=== PATIENT | female | born 1955 | race Caucasian/White ===

== ENCOUNTER 2022-05-30 20:15 | Emergency (ER) | payer MEDICARE, OTHER, SELFPAY ==
[2022-05-30] VITALS (9 sets, daily range): BP systolic 124–168; BP diastolic 57–78; PULSE 55–75; RESP 14–26; O2SAT 97–100; BMI 26.4
--- NOTE | 2022-05-30 20:36 | DI.RAD.S_ITS ---
PROCEDURE: XR CHEST 1V INDICATIONS: chest pain TECHNIQUE: One view of the chest was acquired. COMPARISON: None. FINDINGS: Surgical changes and devices: None. Lungs and pleura: Lungs are clear. No pleural effusions or pneumothorax. Mediastinum: Mediastinal contours appear normal. Heart size is normal. Bones and chest wall: No suspicious bony lesions. Overlying soft tissues appear unremarkable. IMPRESSION: No acute cardiopulmonary disease. Dictated by: Smiley Choudhury M.D. on 05/30/2022 at 21:27 Approved by: Smiley Choudhury M.D. on 05/30/2022 at 21:27
[2022-05-30 20:45] LABS: INR 0.9 (0.9-1.3); Prothrombin Time 10.6 SECONDS (10.1-12.7)
[2022-05-30 20:46] LABS: HEMOLYSIS < 15 (0-50)
[2022-05-30 20:47] LABS: Add Manual Diff / Slide Review NO; Basophils Absolute Auto 100 /uL (0-100); Basophils Percent Auto 0.8 % (0-2); Eosinophils Absolute Auto 300 /uL (0-450); Eosinophils Percent Auto 3.2 % (2-4); Hemoglobin 12.3 g/dL (12.0-16.0); Lymphocytes Absolute Auto 3200 /uL (1100-4500); Lymphocytes Percent Auto 39.7 % (25-40); Mean Corpuscular HGB Conc 33.3 % (30-36); Mean Corpuscular Hemoglobin 28.7 PG (26-34); Mean Corpuscular Volume 86.3 fL (80-100); Monocytes Absolute Auto 700 /uL (0-900); Monocytes Percent Auto 9.4 % (3-14); Neutrophils Absolute Auto 3800 /uL (1500-7000); Neutrophils Percent Auto 46.9 % (50-75); PTT Partial Thromboplastin Tim 36 SECONDS (26-36); Platelet Count 315 X10^3/uL (150-400); Red Blood Cell Count 4.29 X10^6/uL (4.0-5.2); Red Cell Distribution Width 13.9 % (11.6-14.8)
[2022-05-30 20:51] LABS: Alanine Aminotransferase 46 IU/L (<35); Albumin 4.5 g/dL (3.5-5.0); Albumin Globulin Ratio 1.4 (1.0-2.8); Alkaline Phosphatase 101 U/L (38-126); Aspartate Aminotransferase 40 IU/L (14-36); Bilirubin Total 0.4 mg/dL (0.2-1.3); Blood Urea Nitrogen 19 mg/dL (7-17); Calcium 9.8 mg/dL (8.4-10.2); Carbon Dioxide 27 mmol/L (22-32); Chloride 99 mmol/L (98-107); Creatine Kinase 75 U/L (30-135); Estimated Glomerular Filt Rate > 60 mL/min (>60); Globulin 3.2 g/dL (1.7-4.1); Glucose 99 mg/dL (80-110); Lipase 160 U/L (23-300); Magnesium 2.2 mg/dL (1.6-2.3); Potassium 3.5 mmol/L (3.4-5.1); Sodium 136 mmol/L (137-145); Total Protein 7.7 g/dL (6.3-8.2)
[2022-05-30] MEDS: ASPIRIN 81 MG CHEW TAB 324 MG PO (20:57)
[2022-05-30 21:04] LABS: Troponin I < 0.012 ng/mL (0.01-0.034)
[2022-05-30 21:33] LABS: NT-proBNP (BNP-Adult 18+) 110 pg/mL (<125)
--- NOTE | 2022-05-30 22:29 | ED.CHESTPAIN ---
HPI - Chest Pain General Chief Complaint: Chest Pain Stated Complaint: chest pain Time Seen by Provider: 05/30/22 21:06 Source: patient Mode of arrival: Ambulatory Limitations: no limitations History of Present Illness HPI narrative: This is a 66-year-old female with history of hypothyroidism, asthma, dyslipidemia with complaint of left-sided chest pain radiates sort of to the outer left chest. Patient states it started about noon today it has been intermittent lasts about 10 or 15 seconds resolves and then come back in 5 or 10 minutes. She states it radiated to her back once but not consistently. She states she is felt fatigued and slightly nauseated. She states she took Gas-X and Pepcid without any improvement. She has not felt lightheaded or like she is going to pass out. Nothing seems to make it worse she states it feels a little better if she lays flat. She denies any new swelling in her extremities. She states no new shortness of breath but she is persistently short of breath from her asthma. She does state she was nauseated with these episodes but not vomiting. No diaphoresis. No fevers no cold cough or congestion. She has not had similar symptoms in the past. She notes she takes Synthroid for her hypothyroidism, Singulair and inhaler for asthma aspirin 81 mg daily she is on Lipitor and states she has been seen by Cardiology in [place] where she lives full-time she had 3 different types of stress testing and states that she was told that because of her cholesterol is very high she is scheduled to be seen and possibly have catheterization in August. She states this is because her cholesterol is. Family history includes dad who had a triple bypass at age 56. She has 7 siblings she states they have hypertension she is unaware of any cardiac history. No known blood clot or DVT history. She is been in the area for several months visiting but her primary care and cardiology is at [facility] with Saroj. Related Data Allergies Allergy/AdvReac Type Severity Reaction Status Date / Time bupropion [From Wellbutrin] AdvReac Severe Psychosis Verified 05/30/22 20:55 promethazine [From Phenergan] AdvReac Severe Psychosis Verified 05/30/22 20:55 Review of Systems Review of Systems ROS Unobtainable: All systems reviewed & are unremarkable except as noted in HPI and below Patient History Social History Smoking Status: Never smoker Smoking Status: Never smoker Substance Use Type: does not use Exam Narrative Exam Narrative: GENERAL: Alert and oriented x three, elderly female in mild distress. HEENT: Head normocephalic, atraumatic, EOMI, pupils reactive, face symmetric, moist mucous membranes NECK: Supple, full range of motion CARDIOVASCULAR: Regular rate and rhythm without murmurs, rubs or gallops. No reproducible chest pain or pressure. Patient does not have any erythema, vesicles or other skin changes. No ecchymosis. No JVD. 2+ pulses bilateral upper extremities. RESPIRATORY: Breath sounds equal bilaterally, no wheezes rales or rhonchi. No tachypnea or accessory muscle use. ABDOMEN: Soft, nontender. Normoactive bowel sounds all 4 quadrants. No guarding or rebound, rigidity, no mass : No CVA tenderness EXTREMITIES: Normal range of motion, no clubbing or edema. Neurovascularly intact NEUROLOGICAL: Cranial nerves II through XII grossly intact. Moving all extremities SKIN: Warm, dry, no petechiae, no rashes or lesions. Initial Vital Signs Initial Vital Signs: Vital Signs Pulse Rate 75 05/30/22 20:22 Pulse Oximetry 100 05/30/22 20:22 Scores HEART Score Heart Score history: Moderately Suspicious Heart Score EKG: Non-Specific repolarization disturbance Heart Score Age: > or = 65 years old Heart Score risk factors: 1-2 risk factors Heart Score troponin: < or = to normal limit Heart Score Total: 5 Course Orders Ordered: ED Orders 05/30/22 20:29 Complete Blood Count AUTO DIFF Stat Comprehensive Metabolic Panel Stat D Dimer Stat Lipase Stat Magnesium Stat Partial Thromboplastin Time Stat Prothrombin Time INR Stat Troponin & CK Cardiac Panel Stat 05/30/22 20:32 BNP [NT-proBNP (BNP-Adult 18+)] Stat 05/30/22 20:36 XR chest 1V Stat EKG-12 Lead Stat 05/30/22 22:29 EKG-12 Lead Stat 05/30/22 22:30 Trop I [Troponin I] Stat Discontinued Medications Aspirin (Aspirin 81 Mg Chew Tab) 324 mg PO NOW ONE Stop: 05/30/22 20:37 Last Admin: 05/30/22 20:57 Dose: 162 mg Documented By: AT Nitroglycerin (Nitroglycerin 0.4 Mg Sl Tab) 0.4 mg SL NOW ONE Stop: 05/30/22 23:19 Last Admin: 05/30/22 23:40 Dose: Not Given Documented By: MARY GRACE Reevaluation(s) Reevaluation #1: Patient states chest pain has resolved. She did not get sublingual nitro. Patient does not wish to stay for observation/stress testing. We did discuss she is somewhat high-risk we can not rule out cardiac causes. She states she will return if her symptoms reoccur. Time: 23:35 Vital Signs Vital signs: Vital Signs - 8 hr 05/30/22 20:27 05/30/22 20:22 05/30/22 20:27 Pulse Rate 72 75 Respiratory Rate 18 Blood Pressure 168/77 H 164/78 H Pulse Oximetry 100 100 Oxygen Delivery Method Room Air 05/30/22 20:27 05/30/22 20:30 05/30/22 21:00 Pulse Rate 67 58 L Respiratory Rate 15 14 Blood Pressure 126/57 L Pulse Oximetry 100 99 Oxygen Delivery Method Room Air 05/30/22 21:00 05/30/22 21:30 05/30/22 21:30 Pulse Rate 59 L 63 Respiratory Rate 21 18 Blood Pressure 124/57 L Pulse Oximetry 97 97 Oxygen Delivery Method Room Air Room Air 05/30/22 22:00 05/30/22 22:00 05/30/22 22:32 Pulse Rate 58 L 56 L Respiratory Rate 21 25 H Blood Pressure 127/60 Pulse Oximetry 97 Oxygen Delivery Method Room Air 05/30/22 23:00 05/30/22 23:30 Pulse Rate 55 L 57 L Respiratory Rate 26 H 22 Blood Pressure Pulse Oximetry 98 97 Oxygen Delivery Method MDM - Chest Pain Lab Data 05/30/22 20:29 05/30/22 20:29 Labs: Lab Results 05/30/22 05/30/22 05/30/22 Range/Units 20:29 20:29 20:29 WBC 8.0 (4.5-11.0) X10^3/uL RBC 4.29 (4.0-5.2) X10^6/uL Hgb 12.3 (12.0-16.0) g/dL Hct 37.0 (36-46) % MCV 86.3 (80-100) fL MCH 28.7 (26-34) PG MCHC 33.3 (30-36) % RDW 13.9 (11.6-14.8) % Plt Count 315 (150-400) X10^3/uL Neut % (Auto) 46.9 L (50-75) % Lymph % (Auto) 39.7 (25-40) % [place] % (Auto) 9.4 (3-14) % Eos % (Auto) 3.2 (2-4) % Baso % (Auto) 0.8 (0-2) % Neut # (Auto) 3800 (0354-0052) /uL Lymph # (Auto) 3200 (6755-5289) /uL [place] # (Auto) 700 (0-900) /uL Eos # (Auto) 300 (0-450) /uL Baso # (Auto) 100 (0-100) /uL PT 10.6 (10.1-12.7) SECONDS INR 0.9 (0.9-1.3) APTT 36 (26-36) SECONDS D-Dimer (<500) ng/ml Sodium 136 L (137-145) mmol/L Potassium 3.5 (3.4-5.1) mmol/L Chloride 99 (98-107) mmol/L Carbon Dioxide 27 (22-32) mmol/L BUN 19 H (7-17) mg/dL Creatinine 0.95 (0.52-1.04) mg/dL Estimated GFR > 60 (>60) mL/min BUN/Creatinine Ratio 20.0 (6-22) Glucose 99 (80-110) mg/dL Calcium 9.8 (8.4-10.2) mg/dL Magnesium 2.2 (1.6-2.3) mg/dL Total Bilirubin 0.4 (0.2-1.3) mg/dL AST 40 H (14-36) IU/L ALT 46 H (<35) IU/L Alkaline Phosphatase 101 (38-126) U/L Total Creatine Kinase 75 (30-135) U/L CK-MB (CK-2) TNP CK-MB (CK-2) Rel Index TNP Troponin I < 0.012 (0.01-0.034) ng/mL NT-Pro-B Natriuret Pep (<125) pg/mL Total Protein 7.7 (6.3-8.2) g/dL Albumin 4.5 (3.5-5.0) g/dL Globulin 3.2 (1.7-4.1) g/dL Albumin/Globulin Ratio 1.4 (1.0-2.8) Lipase 160 (23-300) U/L 05/30/22 05/30/22 05/30/22 Range/Units 20:29 20:32 22:30 WBC (4.5-11.0) X10^3/uL RBC (4.0-5.2) X10^6/uL Hgb (12.0-16.0) g/dL Hct (36-46) % MCV (80-100) fL MCH (26-34) PG MCHC (30-36) % RDW (11.6-14.8) % Plt Count (150-400) X10^3/uL Neut % (Auto) (50-75) % Lymph % (Auto) (25-40) % [place] % (Auto) (3-14) % Eos % (Auto) (2-4) % Baso % (Auto) (0-2) % Neut # (Auto) (6034-5044) /uL Lymph # (Auto) (5680-0451) /uL [place] # (Auto) (0-900) /uL Eos # (Auto) (0-450) /uL Baso # (Auto) (0-100) /uL PT (10.1-12.7) SECONDS INR (0.9-1.3) APTT (26-36) SECONDS D-Dimer 337 (<500) ng/ml Sodium (137-145) mmol/L Potassium (3.4-5.1) mmol/L Chloride (98-107) mmol/L Carbon Dioxide (22-32) mmol/L BUN (7-17) mg/dL Creatinine (0.52-1.04) mg/dL Estimated GFR (>60) mL/min BUN/Creatinine Ratio (6-22) Glucose (80-110) mg/dL Calcium (8.4-10.2) mg/dL Magnesium (1.6-2.3) mg/dL Total Bilirubin (0.2-1.3) mg/dL AST (14-36) IU/L ALT (<35) IU/L Alkaline Phosphatase (38-126) U/L Total Creatine Kinase (30-135) U/L CK-MB (CK-2) CK-MB (CK-2) Rel Index Troponin I < 0.012 (0.01-0.034) ng/mL NT-Pro-B Natriuret Pep 110 (<125) pg/mL Total Protein (6.3-8.2) g/dL Albumin (3.5-5.0) g/dL Globulin (1.7-4.1) g/dL Albumin/Globulin Ratio (1.0-2.8) Lipase (23-300) U/L Urine Dip Bedside Urine Glucose Negative Bedside Urine Bilirubin - Negative Bedside Urine Ketone - Negative Urine Specific [place] 1.010 Bedside Urine Occult Blood - Negative Bedside Urine pH 7.5 Bedside Urine Protein - Negative Bedside Urine Urobilinogen - Negative Bedside Urine Nitrite - Negative Bedside Urine Leukocytes - Negative Esterase Imaging Data Chest x-ray: Radiologist's Impression: [address] [address] XRay Report Signed Patient: Sofi Dozier MR#: [id number] : 1955 Acct:[id number] Age/Sex: 66 / F Date of Service: 05/30/22 Loc: ED Accession Number: [id number] ?? Procedure: XR chest 1V Ordering Provider: Christina Escalona D.O. PROCEDURE:? XR CHEST 1V ? INDICATIONS:? chest pain ? TECHNIQUE:? One view of the chest was acquired.? ? COMPARISON:? None. ? FINDINGS:? ? Surgical changes and devices:? None.? ? Lungs and pleura:? Lungs are clear.? No pleural effusions or pneumothorax.? ? Mediastinum:? Mediastinal contours appear normal.? Heart size is normal.? ? Bones and chest wall:? No suspicious bony lesions.? Overlying soft tissues appear unremarkable.? ? IMPRESSION:? No acute cardiopulmonary disease.? ? ? Dictated by: Smiley Choudhury M.D. on 05/30/2022 at 21:27 ? ? Approved by: Smiley Choudhury M.D. on 05/30/2022 at 21:27?? ECG Data Attestation: I personally reviewed and interpreted this ECG as follows: Prior ECG tracings: available for review Interpretation: Sinus rhythm rate of 63 DC 200 QRS is 72 and QTC of 415. V1 appears fairly similar but T-wave is more flattened rather than up same with V2. Patient does not have any other new ST changes appreciated. This is from EKG on 10/03/2014 for comparison. EKG 2. Shows sinus bradycardia with first-degree AV block, rate of 50 3p are 222, QRS is 72 and QTC of 431. Patient does have Q-wave in V1 V2 no new ST changes appreciated. MDM Narrative Medical decision making narrative: This is a 66-year-old female with complaint of left-sided chest pain, nausea that has been intermittent throughout the day patient does have risk factors she has dyslipidemia, family history with her dad having a triple bypass at age 56 and does appear to have some change particularly in V2 but V1 V2 compared to 2015 EKG. Patient's initial workup CBC, CMP, lipase, troponin and BNP are negative. Chest x-ray is also negative. Repeat EKG does not show dynamic changes. Second troponin and dimer are negative. Discussed with patient would like to keep for observation she does have some high-risk cardiac criteria. She has negative troponins without dynamic EKG changes but does have some change from old EKGs to new. Patient states her chest pain resolved she would like to return referral to Cardiology. 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 Discharge Plan Departure Patient Disposition: Home Clinical Impression: Chest pain Instructions: DI for Chest Pain Activity Restrictions/Additional Instructions: Please follow-up, call your cardiology team to set up follow-up when you return home to [place]. Included is referral for local cardiology here. Please continue your home medications as prescribed. Please return for new or worsening chest pain, shortness of breath, nausea or vomiting, lightheadedness or passing out, sweatiness or other new or concerning changes. Referrals: Jose David Lee MD [Physician] - Stand Alone Forms: Patient Portal/API
[2022-05-30 23:00] LABS: D Dimer 337 ng/ml (<500)
[2022-05-30 23:03] LABS: Troponin I < 0.012 ng/mL (0.01-0.034)
== END 2022-05-30 23:40 | disposition home or self-care (01) ==
PROVIDERS: Emergency Provider Emergency Medicine
DX: R07.9 Chest pain, unspecified (principal); R11.0 Nausea
CPT/HCPCS: 36415; 71045; 80053; 81003; 82550; 83690; 83735; 83880; 84484; 85025; 85379; 85610; 85730; 93005; 93010; 99284